=== PATIENT | female | born 1995 ===

== ENCOUNTER 2017-10-18 06:21 | Inpatient (IN) ==
[2017-10-18] MEDS: LACTATED RINGERS 1,000 ML IV SCH ×3 (07:30→22:37)
[2017-10-18] MEDS ORDERED: BUTORPHANOL 2 MG/ML VIAL IV PRN (07:39)
[2017-10-18] MEDS ORDERED: ONDANSETRON 4 MG/2 ML VIAL IV PRN (07:39)
[2017-10-18] MEDS ORDERED: MEPERIDINE 50 MG/1 ML VIAL IV PRN (07:39)
[2017-10-18] MEDS: OXYTOCIN/LR 20 UNIT/1,000 ML BAG IV SCH (08:00)
[2017-10-18 09:06] LABS: Basophils % 0.1 % (0.0-0.8); Eosinophils # 0.1 10*3/uL (0.0-0.87); Eosinophils % 0.7 % (0.00-10.9); Hematocrit 33.4 VOL% (35.7-47.0); Immature Granulocytes % 0.5 %; Immature Granulocytes Absolute 0.04 #; Lymphocytes # 1.7 10*3/uL (1.4-4.0); Lymphocytes % 22.8 % (21.3-54.2); Mean Corpuscular HGB Conc 32.9 GM/DL (32-36); Mean Corpuscular Hemoglobin 29 PG (27-34); Mean Corpuscular Volume 88.8 FL (87-102); Mean Platelet Volume 10.1 FL (9.6-12.0); Monocytes # 0.6 10*3/uL (0.11-0.8); Neutrophils % 67.9 % (38.7-73.9); Platelet Count 272 T/CUMM (130-400); Red Blood Count 3.76 MC/CUMM (3.8-5.5); Red Cell Distribution Width 13.2 % (9.3-17.3); White Blood Count 7.4 T/CUMM (4-12)
[2017-10-18 09:16] LABS: Albumin 2.5 G/DL (3.4-5.0); Bilirubin,Total 0.6 MG/DL (0.2-1.0); Calcium 8.9 MG/DL (8.5-10.1); Osmolality,Calculated 274.4 MOS/KG (273-304); Total Protein 6.2 G/DL (6.4-8.3)
[2017-10-18] MEDS ORDERED: CITRIC ACID/SODIUM CITRATE 30 ML UDCUP PO ONE (15:29)
[2017-10-18] MEDS ORDERED: LACTATED RINGERS 1,000 ML IV ONE (15:29)
[2017-10-18] MEDS ORDERED: FAMOTIDINE 20 MG/2 ML VIAL IV ONE (15:29)
[2017-10-18] MEDS ORDERED: fentaNYL 2 MCG/ROPIV 0.2% EPID 150 ML EPIDURAL SCH (15:30)
[2017-10-18] MEDS ORDERED: hydrOXYzine HCL 25 MG/1 ML VIAL IM PRN (15:30)
[2017-10-18] MEDS ORDERED: diphenhydrAMINE 50 MG/1 ML VIAL IV PRN ×2 (15:30)
[2017-10-18] MEDS ORDERED: ePHEDrine 50 MG/ML AMP IV PRN (15:30)
[2017-10-18] MEDS ORDERED: PROMETHAZINE 25 MG/1 ML VIAL IM ONE (15:30)
[2017-10-18 18:10] LABS: Apearance,Urine CLEAR (Clear); Bacteria,Urine Occasional /HPF (Few); Bilirubin,Urine Negative (Negative); Blood, Urine Small mg/dL (Negative); Glucose,Urine (UA) Negative (Negative); Ketones,Urine 20 mg/dL (Negative); Nitrite,Urine Negative (Negative); Protein,Urine Negative; RBC,Urine 2 /HPF (0-4); Squamous Epithelial Cell,Urine Occasional /HPF (0-10); Urine Color Straw (Yellow); Urine Specific Gravity 1.005 (1.001-1.035); Urine Urobilinogen < 2.0 EU/DL (0.2-1.0); WBC,Urine 1 /HPF (0-6)
[2017-10-18] MEDS ORDERED: ACETAMINOPHEN 500 MG TABLET PO PRN (20:50)
[2017-10-18] MEDS: ceFAZolin 2,000 MG in PREMIX 1 EACH IV SCH (22:25)
[2017-10-19] MEDS: LACTATED RINGERS 1,000 ML IV SCH ×2 (02:50→17:29)
[2017-10-19] MEDS: ceFAZolin 2,000 MG in PREMIX 1 EACH IV SCH (03:04)
[2017-10-19] MEDS: OXYTOCIN/LR 20 UNIT/1,000 ML BAG IV SCH (05:00)
[2017-10-19] MEDS ORDERED: fentaNYL 100 MCG/2 ML VIAL ONE (09:53)
[2017-10-19] MEDS ORDERED: LIDOCAINE 1% 50 ML VIAL ONE (11:39)
[2017-10-19] MEDS ORDERED: METHYLERGONOVINE 0.2 MG/1 ML AMP ONE ×2 (11:39→13:59)
[2017-10-19] MEDS ORDERED: miSOPROStol 200 MCG TABLET ONE (11:39)
[2017-10-19] MEDS ORDERED: OXYTOCIN 10 UNIT/ML VIAL ONE (12:38)
[2017-10-19] MEDS ORDERED: OXYTOCIN 10 UNIT/ML VIAL IM ONE (12:51)
[2017-10-19] MEDS ORDERED: OXYTOCIN/LR 30 UNIT/1,000 ML BAG IV ONE (12:51)
[2017-10-19] MEDS ORDERED: PHENYLEPHRINE 10 MG/1 ML VIAL IV ONE (14:05)
[2017-10-19] MEDS ORDERED: LIDOCAINE MPF 2% /EPI 20 ML VIAL ONE (14:06)
[2017-10-19 14:10] LABS: Cord Arterial Blood HCO3 19.2 MMOL/L
[2017-10-19 14:13] LABS: Cord Venous Blood PCO2 50.7 MMHG; Cord Venous Blood PO2 20.6
[2017-10-19] MEDS ORDERED: SIMETHICONE CHEW 80 MG TABLET PO PRN (16:23)
[2017-10-19] MEDS ORDERED: OXYTOCIN/LR 20 UNIT/1,000 ML BAG IV ONE (16:23)
[2017-10-19] MEDS ORDERED: MAGNESIUM HYDROXIDE SUSP 30 ML UDCUP PO PRN (16:23)
[2017-10-19] MEDS ORDERED: ACETAMINOPHEN 325 MG TABLET PO PRN (16:23)
[2017-10-19] MEDS ORDERED: ceFAZolin 1,000 MG in SYRINGE 1 EACH IV SCH (16:23)
[2017-10-19] MEDS ORDERED: RHO(D) IMMUNE GLOBULIN 300 MCG SYRINGE IM ONE (16:23)
[2017-10-19] MEDS ORDERED: ONDANSETRON 4 MG/2 ML VIAL IV PRN (16:23)
[2017-10-19] MEDS ORDERED: HYDROmorphone 2 MG/1 ML VIAL IV PRN (16:37)
[2017-10-19] MEDS: IBUPROFEN 800 MG TABLET PO PRN (19:58)
[2017-10-19] MEDS: DOCUSATE SODIUM 100 MG CAPSULE PO SCH (21:06)
[2017-10-19] MEDS: ceFAZolin 1,000 MG in SYRINGE 1 EACH IV SCH (21:09)
[2017-10-19 21:51] LABS: Basophils % 0.1 % (0.0-0.8); Hematocrit 27.2 VOL% (35.7-47.0); Immature Granulocytes % 0.5 %; Immature Granulocytes Absolute 0.08 #; Lymphocytes # 1.2 10*3/uL (1.4-4.0); Mean Corpuscular HGB Conc 33.1 GM/DL (32-36); Mean Corpuscular Hemoglobin 29 PG (27-34); Mean Platelet Volume 9.6 FL (9.6-12.0); Monocytes # 0.7 10*3/uL (0.11-0.8); Neutrophils # 12.9 10*3/uL (1.4-7.4); Neutrophils % 86.4 % (38.7-73.9); Platelet Count 181 T/CUMM (130-400); Red Blood Count 3.09 MC/CUMM (3.8-5.5); Red Cell Distribution Width 13.2 % (9.3-17.3); White Blood Count 14.9 T/CUMM (4-12)
[2017-10-20] MEDS: LACTATED RINGERS 1,000 ML IV SCH ×3 (02:00→18:37)
[2017-10-20] MEDS: ceFAZolin 1,000 MG in SYRINGE 1 EACH IV SCH (05:31)
[2017-10-20 06:39] LABS: Basophils % 0.1 % (0.0-0.8); Eosinophils % 0.1 % (0.00-10.9); Hemoglobin 9.4 GM/DL (12.0-16.0); Immature Granulocytes % 0.5 %; Immature Granulocytes Absolute 0.08 #; Lymphocytes # 1.4 10*3/uL (1.4-4.0); Lymphocytes % 8.8 % (21.3-54.2); Mean Corpuscular HGB Conc 34.8 GM/DL (32-36); Mean Corpuscular Hemoglobin 30 PG (27-34); Mean Corpuscular Volume 86.3 FL (87-102); Mean Platelet Volume 9.6 FL (9.6-12.0); Monocytes # 0.9 10*3/uL (0.11-0.8); Neutrophils # 13.2 10*3/uL (1.4-7.4); Neutrophils % 84.5 % (38.7-73.9); Platelet Count 196 T/CUMM (130-400); Red Blood Count 3.13 MC/CUMM (3.8-5.5); Red Cell Distribution Width 13.3 % (9.3-17.3); White Blood Count 15.6 T/CUMM (4-12)
[2017-10-20] MEDS: IBUPROFEN 800 MG TABLET PO PRN ×2 (06:52→20:48)
[2017-10-20 06:57] LABS: Band Neutrophils 5 % (0-10); Lymphocytes 6 % (20-55); Platelet Estimate Adequate; Segmented Neutrophils 86 % (50-85); Total Cells Counted 100
[2017-10-20 06:58] LABS: Giant Platelets Few; Hypochromasia 1+; Microcytosis Slight
[2017-10-20] MEDS ORDERED: ceFAZolin 2,000 MG in PREMIX 1 EACH IV ONE (09:22)
[2017-10-20] MEDS ORDERED: oxyCODONE/ACETAMINOPHEN 5-325 MG TABLET PO PRN (09:27)
[2017-10-20] MEDS: ACETAMINOPHEN 325 MG TABLET PO SCH ×3 (09:42→22:07)
[2017-10-20] MEDS: DOCUSATE SODIUM 100 MG CAPSULE PO SCH ×2 (09:49→20:48)
[2017-10-20] MEDS: MULTIVITAMIN (PRENATAL) TABLET PO SCH (09:49)
[2017-10-20] MEDS: oxyCODONE/ACETAMINOPHEN 5-325 MG TABLET PO PRN ×2 (14:04→20:49)
[2017-10-21] MEDS: LACTATED RINGERS 1,000 ML IV SCH (04:54)
[2017-10-21] MEDS: ACETAMINOPHEN 325 MG TABLET PO SCH (04:54)
[2017-10-21] MEDS: IBUPROFEN 800 MG TABLET PO PRN ×2 (06:09→20:18)
[2017-10-21] MEDS: oxyCODONE/ACETAMINOPHEN 5-325 MG TABLET PO PRN ×2 (06:10→17:45)
[2017-10-21 08:20] LABS: Basophils % 0.2 % (0.0-0.8); Eosinophils # 0.2 10*3/uL (0.0-0.87); Eosinophils % 1.7 % (0.00-10.9); Hematocrit 25.8 VOL% (35.7-47.0); Hemoglobin 8.5 GM/DL (12.0-16.0); Immature Granulocytes % 0.5 %; Immature Granulocytes Absolute 0.06 #; Lymphocytes # 1.6 10*3/uL (1.4-4.0); Lymphocytes % 13.5 % (21.3-54.2); Mean Corpuscular HGB Conc 32.9 GM/DL (32-36); Mean Corpuscular Hemoglobin 30 PG (27-34); Mean Corpuscular Volume 90.2 FL (87-102); Mean Platelet Volume 9.5 FL (9.6-12.0); Monocytes # 0.8 10*3/uL (0.11-0.8); Monocytes % 6.3 % (1.7-12.7); Neutrophils # 9.4 10*3/uL (1.4-7.4); Neutrophils % 77.8 % (38.7-73.9); Platelet Count 181 T/CUMM (130-400); Red Blood Count 2.86 MC/CUMM (3.8-5.5); Red Cell Distribution Width 13.3 % (9.3-17.3); White Blood Count 12.1 T/CUMM (4-12)
[2017-10-21] MEDS: MULTIVITAMIN (PRENATAL) TABLET PO SCH (08:57)
[2017-10-21] MEDS: DOCUSATE SODIUM 100 MG CAPSULE PO SCH ×2 (08:57→20:39)
[2017-10-22] MEDS: IBUPROFEN 800 MG TABLET PO PRN (04:12)
[2017-10-22] MEDS: oxyCODONE/ACETAMINOPHEN 5-325 MG TABLET PO PRN (04:13)
[2017-10-22 08:37] VITALS: BP 110/72
[2017-10-22] MEDS: DOCUSATE SODIUM 100 MG CAPSULE PO SCH (08:45)
[2017-10-22] MEDS: MULTIVITAMIN (PRENATAL) TABLET PO SCH (08:46)
[2017-10-22] MEDS ORDERED: DIPH/TET/ACEL PERT BOOSTER VACCINE 0.5 ML VIAL IM ONE (11:46)
== END 2017-10-22 13:10 | disposition home or self-care (01) | DRG 540 ==
LOC: N.LDOUT 06:21 → N.LD 06:25 → N.OB 10-19 16:22
PROVIDERS: ADMIT Obstetrics & Gynecology; ATTEND Obstetrics & Gynecology
PROC: LDCSECT (ICD-10-PCS; 2017-10-19 14:30)

== ENCOUNTER 2021-10-28 09:44 | Inpatient (IN) ==
[2021-10-28 10:49] LABS: Basophils % 0.3 % (0.0-0.8); Eosinophils # 0.1 10*3/uL (0.0-0.87); Eosinophils % 0.7 % (0.00-10.9); Hematocrit 34.1 VOL% (35.7-47.0); Hemoglobin 10.4 GM/DL (12.0-16.0); Immature Granulocytes % 1.2 %; Immature Granulocytes Absolute 0.08 #; Lymphocytes # 1.6 10*3/uL (1.4-4.0); Lymphocytes % 22.7 % (21.3-54.2); Mean Corpuscular HGB Conc 30.5 GM/DL (32-36); Mean Corpuscular Volume 82.4 FL (87-102); Mean Platelet Volume 8.7 FL (9.6-12.0); Monocytes % 5.7 % (1.7-12.7); Neutrophils % 69.4 % (38.7-73.9); Platelet Count 284 T/CUMM (130-400); Red Blood Count 4.14 MC/CUMM (3.8-5.5); Red Cell Distribution Width 16.2 % (9.3-17.3); White Blood Count 6.8 T/CUMM (4-12)
[2021-10-28] MEDS ORDERED: LACTATED RINGERS 1,000 ML IV SCH ×2 (11:00→16:00)
[2021-10-28 11:14] LABS: Albumin 2.5 G/DL (3.4-5.0); Bilirubin,Total 0.4 MG/DL (0.20-1.00); Calcium 8.6 MG/DL (8.5-10.1); Osmolality,Calculated 273.5 MOS/KG (273-304); Potassium 3.7 MMOL/L (3.5-5.1); Total Protein 7.3 G/DL (6.4-8.2)
[2021-10-28] MEDS ORDERED: FAMOTIDINE 20 MG/2 ML VIAL IV ONE (12:30)
[2021-10-28] MEDS ORDERED: OXYTOCIN 10 UNIT/ML VIAL IM ONE (12:30)
[2021-10-28] MEDS ORDERED: OXYTOCIN/LR 30 UNIT/1,000 ML BAG IV ONE (12:30)
[2021-10-28] MEDS ORDERED: ceFAZolin 2,000 MG/50 ML DUPLEX IV ONE (12:30)
[2021-10-28] MEDS ORDERED: CITRIC ACID/SODIUM CITRATE 30 ML UDCUP PO ONE (12:30)
[2021-10-28] MEDS ORDERED: miSOPROStoL 200 MCG TABLET ONE (13:28)
[2021-10-28] MEDS ORDERED: METHYLERGONOVINE 0.2 MG/1 ML AMP ONE (13:29)
[2021-10-28] MEDS ORDERED: CARBOPROST TROMETHAMINE 250 MCG/ML AMP IM ONE (13:29)
[2021-10-28] MEDS ORDERED: ONDANSETRON 4 MG/2 ML VIAL ONE (13:31)
[2021-10-28] MEDS ORDERED: BUPIVACAINE SPINAL 0.75% 2 ML AMP SPINAL ONE (13:31)
[2021-10-28] MEDS ORDERED: LACTATED RINGERS 1,000 ML IV ONE ×2 (14:43→14:59)
[2021-10-28] MEDS ORDERED: KETOROLAC 30 MG/1 ML VIAL ONE (14:59)
[2021-10-28 15:33] LABS: Cord Venous Blood HCO3 23.4 MMOL/L; Cord Venous Blood PCO2 46.1 MMHG; Cord Venous Blood PO2 29.3
[2021-10-28 15:36] LABS: Bacteria,Urine Occasional /HPF (Few); Mucus,Urine Few /LPF (Occasional); RBC,Urine 1 /HPF (0-4); Squamous Epithelial Cell,Urine Occasional /HPF (0-10)
[2021-10-28 15:37] LABS: Bilirubin,Urine Small mg/dL (Negative); Blood, Urine Negative (Negative); Glucose,Urine (UA) Negative (Negative); Ketones,Urine 40 mg/dL (Negative); Nitrite,Urine Negative (Negative); Protein,Urine Trace mg/dL (Negative); Urine Appearance Clear (Clear); Urine Color Dark yellow (Yellow); Urine pH 6.5 (4.5-8.0)
[2021-10-28] MEDS ORDERED: RHO(D) IMMUNE GLOBULIN 300 MCG SYRINGE IM ONE (15:50)
[2021-10-28] MEDS ORDERED: ONDANSETRON 4 MG/2 ML VIAL IV PRN (15:50)
[2021-10-28] MEDS ORDERED: OXYTOCIN/LR 20 UNIT/1,000 ML BAG IV ONE (15:50)
[2021-10-28] MEDS ORDERED: ACETAMINOPHEN 325 MG TABLET PO PRN (15:50)
[2021-10-28] MEDS ORDERED: HYDROmorphone 1 MG/1 ML SYRINGE IV ONE (18:00)
[2021-10-28] MEDS: ACETAMINOPHEN 500 MG TABLET PO SCH (18:36)
[2021-10-28] MEDS: KETOROLAC 30 MG/1 ML VIAL IV SCH (22:45)
[2021-10-28] MEDS: DOCUSATE SODIUM 100 MG CAPSULE PO SCH (22:45)
[2021-10-29] MEDS: ACETAMINOPHEN 500 MG TABLET PO SCH ×2 (01:58→09:19)
[2021-10-29] MEDS: KETOROLAC 30 MG/1 ML VIAL IV SCH ×2 (04:08→09:22)
[2021-10-29 06:11] LABS: Basophils % 0.2 % (0.0-0.8); Eosinophils # 0.1 10*3/uL (0.0-0.87); Eosinophils % 1.8 % (0.00-10.9); Hematocrit 26.2 VOL% (35.7-47.0); Hemoglobin 7.8 GM/DL (12.0-16.0); Immature Granulocytes % 0.8 %; Immature Granulocytes Absolute 0.05 #; Lymphocytes # 1.9 10*3/uL (1.4-4.0); Lymphocytes % 29.1 % (21.3-54.2); Mean Corpuscular HGB Conc 29.8 GM/DL (32-36); Mean Corpuscular Volume 85.3 FL (87-102); Neutrophils % 60.1 % (38.7-73.9); Platelet Count 210 T/CUMM (130-400); Red Blood Count 3.07 MC/CUMM (3.8-5.5); White Blood Count 6.5 T/CUMM (4-12)
[2021-10-29] MEDS: MULTIVITAMIN (PRENATAL) TABLET PO SCH (09:19)
[2021-10-29] MEDS: DOCUSATE SODIUM 100 MG CAPSULE PO SCH ×2 (09:19→19:37)
[2021-10-29] MEDS: MAGNESIUM HYDROXIDE SUSP 30 ML UDCUP PO PRN (09:19)
[2021-10-29] MEDS: METOCLOPRAMIDE 10 MG TABLET PO SCH ×2 (09:19→21:43)
[2021-10-29] MEDS: FERROUS SULFATE 325 MG TABLET PO SCH ×2 (09:19→19:38)
[2021-10-29] MEDS: SIMETHICONE CHEW 80 MG TABLET PO PRN ×2 (14:07→19:38)
[2021-10-29] MEDS: IBUPROFEN 800 MG TABLET PO PRN (19:37)
[2021-10-29] MEDS ORDERED: BISACODYL 10 MG SUPP RECTAL PRN (21:42)
[2021-10-30] MEDS: IBUPROFEN 800 MG TABLET PO PRN ×2 (03:35→20:22)
[2021-10-30] MEDS: METOCLOPRAMIDE 10 MG TABLET PO SCH (03:46)
[2021-10-30] MEDS: DOCUSATE SODIUM 100 MG CAPSULE PO SCH ×3 (06:14→20:22)
[2021-10-30] MEDS: FERROUS SULFATE 325 MG TABLET PO SCH ×3 (06:14→20:22)
[2021-10-30] MEDS: MULTIVITAMIN (PRENATAL) TABLET PO SCH (09:16)
[2021-10-30] MEDS: SIMETHICONE CHEW 80 MG TABLET PO PRN ×2 (09:16→20:22)
[2021-10-30] MEDS: MAGNESIUM HYDROXIDE SUSP 30 ML UDCUP PO PRN (15:57)
[2021-10-31] MEDS: MAGNESIUM HYDROXIDE SUSP 30 ML UDCUP PO PRN (09:17)
[2021-10-31] MEDS: FERROUS SULFATE 325 MG TABLET PO SCH (09:18)
[2021-10-31] MEDS: DOCUSATE SODIUM 100 MG CAPSULE PO SCH (09:18)
[2021-10-31] MEDS: MULTIVITAMIN (PRENATAL) TABLET PO SCH (09:18)
[2021-10-31 11:46] VITALS: BP 124/82
== END 2021-10-31 13:35 | disposition home or self-care (01) | DRG 540 ==
LOC: N.LD 09:44 → N.OB 22:37
PROVIDERS: ADMIT Obstetrics & Gynecology; ATTEND Obstetrics & Gynecology
PROC: LDCSECT (ICD-10-PCS; 2021-10-28 13:00)